=== PATIENT | female | born 1960 | race Caucasian/White ===

== ENCOUNTER → 2022-03-30 14:13 | Outpatient (BNVA) | payer OTHER, SELFPAY | PROVIDERS: Visit Provider Nurse Practitioner Family | DX: R05.9 Cough, unspecified (principal); R63.4 Abnormal weight loss; Z72.0 Tobacco use | CPT/HCPCS: 71046; 80053; 84443; 85025; 87400 ==

== ENCOUNTER → 2022-04-19 14:22 | Outpatient (BNVA) | payer OTHER, SELFPAY | PROVIDERS: Visit Provider Nurse Practitioner Family | DX: R79.89 Other specified abnormal findings of blood chemistry (principal); R73.09 Other abnormal glucose | CPT/HCPCS: 83036; 84439; 84443; 84480 ==

== ENCOUNTER → 2022-06-18 15:50 | Outpatient (BNVA) | payer OTHER, SELFPAY | PROVIDERS: PCP Nurse Practitioner Family; Referring Provider Nurse Practitioner Family; Visit Provider Internal Medicine | DX: E07.9 Disorder of thyroid, unspecified (principal) | CPT/HCPCS: 83516; 84439; 84443; 84480; 86376; 86800 ==

== ENCOUNTER → 2022-08-12 09:02 | Outpatient (BNVA) | payer OTHER, SELFPAY | PROVIDERS: PCP Nurse Practitioner Family; Visit Provider Internal Medicine | DX: E07.9 Disorder of thyroid, unspecified (principal); E05.90 Thyrotoxicosis, unspecified without thyrotoxic crisis or storm | CPT/HCPCS: 84439; 84443; 84480 ==

== ENCOUNTER → 2023-12-26 14:17 | Outpatient (BNVA) | payer OTHER, SELFPAY | PROVIDERS: PCP Nurse Practitioner Family; Visit Provider Nurse Practitioner Family | DX: S43.401A Unspecified sprain of right shoulder joint, initial encounter (principal); Z85.038 Personal history of other malignant neoplasm of large intestine; M19.011 Primary osteoarthritis, right shoulder; M85.621 Other cyst of bone, right upper arm; Y99.0 Civilian activity done for income or pay; M25.511 Pain in right shoulder | CPT/HCPCS: 73030 ==